=== PATIENT | male | born 1995 | race American Indian/Alaskan Native ===

== ENCOUNTER 2016-09-03 13:49 | Inpatient (IN) | payer OTHER ==
[2016-09-03] MEDS ORDERED: TYLENOL PO STA (14:50)
[2016-09-03] MEDS ORDERED: NACL 0.9% 500 ML 500 ML IV ONE (14:50)
[2016-09-03] MEDS ORDERED: LIDOCAINE VISCOUS 2% ONE (14:51)
[2016-09-03] MEDS ORDERED: TYLENOL ONE (14:51)
[2016-09-03] MEDS ORDERED: LIDOCAINE VISCOUS 2% PO ONE (15:07)
--- NOTE | 2016-09-03 15:26 | XRay Report ---
AP CHEST: HISTORY: Sepsis AP view of the chest demonstrates a normal mediastinal and cardiac contour with clear lungs and normal bony and soft tissue structures. IMPRESSION: Unremarkable AP chest.
[2016-09-03 16:27] LABS: Bilirubin,Urine NEG (Negative); Blood,Urine NEG (Negative); Ketones,Urine 80 mg/dL (Negative); Leukocyte Esterase,Urine NEG (Negative); Mucus,Urine 3+ /HPF; Nitrite,Urine NEG (Negative)
[2016-09-03 17:22] LABS: Basophils % (Auto) 0.6 % (0.0-1.8); Eosinophils % (Auto) 0.1 % (0.0-4.3); Hematocrit 45.5 % (35.5-45.6); Mean Corpuscular HGB Conc 33 % (32-34); Mean Corpuscular Hemoglobin 27 pg (28-32); Mean Corpuscular Volume 82 fl (84-94); Platelet Count 205 K/mm3 (140-440); Red Blood Count 5.54 M/mm3 (3.65-5.03); Red Cell Distribution Width 13.2 % (13.2-15.2); White Blood Count 14.8 K/mm3 (4.5-11.0)
[2016-09-03 17:29] LABS: Alanine Aminotransferase 26 units/L (7-56); Albumin 4.2 g/dL (3.9-5); Albumin/Globulin Ratio 1.1 %; Alkaline Phosphatase 101 units/L (35-129); Anion Gap 18 mmol/L; Bilirubin,Total 0.6 mg/dL (0.1-1.2); Blood Urea Nitrogen 9 mg/dL (9-20); Calcium 9.4 mg/dL (8.4-10.2); Carbon Dioxide 26 mmol/L (22-30); Chloride 93.1 mmol/L (98-107); Glucose 102 mg/dL (75-100); Potassium 3.8 mmol/L (3.6-5.0); Sodium 133 mmol/L (137-145); Total Protein 8.1 g/dL (6.3-8.2)
[2016-09-03 17:32] LABS: INR 1.07 (0.87-1.13)
[2016-09-03] MEDS ORDERED: NACL 0.9% 1000 ML 1,000 ML ONE (20:09)
[2016-09-03] MEDS ORDERED: NACL 0.9% 1000 ML 1,000 ML IV ONE ×2 (20:38→21:24)
[2016-09-03] MEDS ORDERED: MAGIC MOUTHWASH PO ONE (20:58)
[2016-09-03] MEDS ORDERED: DIFLUCAN PO ONE ×2 (20:58)
[2016-09-03] MEDS ORDERED: TORADOL IV ONE (21:35)
--- NOTE | 2016-09-03 22:00 | Emergency Department Report ---
ED ENT HPI - General Chief complaint: Sore Throat Stated complaint: SORE THROAT Time Seen by Provider: 09/03/16 20:46 Source: patient Mode of arrival: Ambulatory Limitations: No Limitations - History of Present Illness Initial comments: 20-year-old male witha past medical history presents with fever and sore throat for the past week. Pain with swallowing and decreased by mouth intake reported. Pain is rated moderate in intensity. Patient noted slight discoloration to throat and tongue. Similar symptoms with strep throat in the past. Patient state he has never been tested for HIV - Related Data Allergies Allergy/AdvReac Type Severity Reaction Status Date / Time No Known Allergies Allergy Unverified 09/03/16 14:35 ED Dental HPI - General Chief complaint: Sore Throat Stated complaint: SORE THROAT Time Seen by Provider: 09/03/16 20:46 Source: patient Mode of arrival: Ambulatory Limitations: No Limitations - Related Data Allergies Allergy/AdvReac Type Severity Reaction Status Date / Time No Known Allergies Allergy Unverified 09/03/16 14:35 ED Review of Systems ROS: Stated complaint: SORE THROAT Other details as noted in HPI Comment: All other systems reviewed and negative Other: Constitutional: As per HPI Eyes: No eye pain visual changes or discharge ENT: As per HPI Neck: Denies pain Respiratory: Denies cough wheezing shortness of breath Cardiovascular: Denies chest pain, palpitations, syncope GI: Denies abdominal pain, nausea, vomiting, diarrhea : Denies dysuria, Musculoskeletal: Denies back pain Skin: Denies rash, lesions, erythema Neurologic: Denies headache, numbness, weakness Psychiatric: Denies suicidal ideation, hallucinations ED Past Medical Hx - Past Medical History Previous Medical History?: No - Surgical History Past Surgical History?: No - Social History Smoking Status: Never Smoker ED Physical Exam - General Limitations: No Limitations - Other Other exam information: General: No limitations, patient is alert in no acute distress Head exam: Atraumatic, normocephalic Eyes exam: Normal appearance ENT: White plaque to the tongue and posterior pharynx suggestive of candidiasis/ yeast. Neck exam: Normal inspection, full range of motion, no meningismus nontender. No tender lymphadenopathy Respiratory exam: Clear to auscultation bilateral, no wheezes, rales, crackles Cardiovascular: Normal rate and rhythm, normal heart sounds Abdomen: Soft, nondistended, and nontender, with normal bowel sounds, no rebound, or guarding Extremity: Full range of motion normal inspection no deformity Back: Normal Inspection, full range of motion, no tenderness Neurologic: Alert, oriented x3, cranial nerves intact, no motor or sensory deficit Psychiatric: normal affect, normal mood Skin: Warm, dry, intact ED Course Vital Signs 09/03/16 09/03/16 09/03/16 14:35 16:49 22:51 Temperature 103 F H 99.6 F Pulse Rate 129 H 111 H 106 H Respiratory 16 16 14 Rate Blood Pressure 127/70 Blood Pressure 122/71 137/90 [Left] O2 Sat by Pulse 100 100 98 Oximetry - Reevaluation(s) Reevaluation #1: 09/03/16 22:54 Hr improving with IVF and fever reduction - Consultations Consultation #1: 09/03/16 21:40 Case was discussed with Dr. Cardona with GI. Even if patient does have rhea esophagitis treatment with Diflucan is unchanged. 09/03/16 22:53 ID responded to page. Dr Salamanca... recommends to admit pt since likely immunocompromised with signifficant fever and oral hitting the ice ED Medical Decision Making - Lab Data Result diagrams: 09/03/16 16:46 09/03/16 16:46 Lab Results 09/03/16 09/03/16 09/03/16 Range/Units 14:56 15:46 16:46 WBC 14.8 H (4.5-11.0) K/mm3 RBC 5.54 H (3.65-5.03) M/mm3 Hgb 15.0 (11.8-15.2) gm/dl Hct 45.5 (35.5-45.6) % MCV 82 L (84-94) fl MCH 27 L (28-32) pg MCHC 33 (32-34) % RDW 13.2 (13.2-15.2) % Plt Count 205 (140-440) K/mm3 Lymph % (Auto) 16.4 (13.4-35.0) % [place] % (Auto) 14.7 H (0.0-7.3) % Eos % (Auto) 0.1 (0.0-4.3) % Baso % (Auto) 0.6 (0.0-1.8) % Lymph # 2.4 (1.2-5.4) K/mm3 [place] # 2.2 H (0.0-0.8) K/mm3 Eos # 0.0 (0.0-0.4) K/mm3 Baso # 0.1 (0.0-0.1) K/mm3 Seg Neutrophils % 68.2 (40.0-70.0) % Seg Neutrophils # 10.1 H (1.8-7.7) K/mm3 PT (12.2-14.9) Sec. INR (0.87-1.13) VBG pH (7.320-7.420) Sodium (137-145) mmol/L Potassium (3.6-5.0) mmol/L Chloride (98-107) mmol/L Carbon Dioxide (22-30) mmol/L Anion Gap mmol/L BUN (9-20) mg/dL Creatinine (0.8-1.5) mg/dL Estimated GFR ml/min BUN/Creatinine Ratio % Glucose (75-100) mg/dL POC Glucose 109 H (70-105) Lactic Acid (0.7-2.0) mmol/L Calcium (8.4-10.2) mg/dL Total Bilirubin (0.1-1.2) mg/dL AST (5-40) units/L ALT (7-56) units/L Alkaline Phosphatase (35-129) units/L Total Protein (6.3-8.2) g/dL Albumin (3.9-5) g/dL Albumin/Globulin Ratio % Urine Color [place]ora[place] (Yellow) Urine Turbidity Clear (Clear) Urine pH 5.0 (5.0-7.0) Ur Specific [place] 1.029 (1.003-1.030) Urine Protein 30 mg/dl (Negative) mg/dL Urine Glucose (UA) Neg (Negative) mg/dL Urine Ketones 80 (Negative) mg/dL Urine Blood Neg (Negative) Urine Nitrite Neg (Negative) Urine Bilirubin Neg (Negative) Urine Urobilinogen 4.0 (<2.0) mg/dL Ur Leukocyte Esterase Neg (Negative) Urine WBC (Auto) 8.0 H (0.0-6.0) /HPF Urine RBC (Auto) 3.0 (0.0-6.0) /HPF Urine Mucus 3+ /HPF 09/03/16 09/03/16 09/03/16 Range/Units 16:46 16:46 16:46 WBC (4.5-11.0) K/mm3 RBC (3.65-5.03) M/mm3 Hgb (11.8-15.2) gm/dl Hct (35.5-45.6) % MCV (84-94) fl MCH (28-32) pg MCHC (32-34) % RDW (13.2-15.2) % Plt Count (140-440) K/mm3 Lymph % (Auto) (13.4-35.0) % [place] % (Auto) (0.0-7.3) % Eos % (Auto) (0.0-4.3) % Baso % (Auto) (0.0-1.8) % Lymph # (1.2-5.4) K/mm3 [place] # (0.0-0.8) K/mm3 Eos # (0.0-0.4) K/mm3 Baso # (0.0-0.1) K/mm3 Seg Neutrophils % (40.0-70.0) % Seg Neutrophils # (1.8-7.7) K/mm3 PT 13.8 (12.2-14.9) Sec. INR 1.07 (0.87-1.13) VBG pH (7.320-7.420) Sodium 133 L (137-145) mmol/L Potassium 3.8 (3.6-5.0) mmol/L Chloride 93.1 L (98-107) mmol/L Carbon Dioxide 26 (22-30) mmol/L Anion Gap 18 mmol/L BUN 9 (9-20) mg/dL Creatinine 1.0 (0.8-1.5) mg/dL Estimated GFR > 60 ml/min BUN/Creatinine Ratio 9.00 % Glucose 102 H (75-100) mg/dL POC Glucose (70-105) Lactic Acid 1.3 (0.7-2.0) mmol/L Calcium 9.4 (8.4-10.2) mg/dL Total Bilirubin 0.6 (0.1-1.2) mg/dL AST 23 (5-40) units/L ALT 26 (7-56) units/L Alkaline Phosphatase 101 (35-129) units/L Total Protein 8.1 (6.3-8.2) g/dL Albumin 4.2 (3.9-5) g/dL Albumin/Globulin Ratio 1.1 % Urine Color (Yellow) Urine Turbidity (Clear) Urine pH (5.0-7.0) Ur Specific [place] (1.003-1.030) Urine Protein (Negative) mg/dL Urine Glucose (UA) (Negative) mg/dL Urine Ketones (Negative) mg/dL Urine Blood (Negative) Urine Nitrite (Negative) Urine Bilirubin (Negative) Urine Urobilinogen (<2.0) mg/dL Ur Leukocyte Esterase (Negative) Urine WBC (Auto) (0.0-6.0) /HPF Urine RBC (Auto) (0.0-6.0) /HPF Urine Mucus /HPF 09/03/16 Range/Units 16:46 WBC (4.5-11.0) K/mm3 RBC (3.65-5.03) M/mm3 Hgb (11.8-15.2) gm/dl Hct (35.5-45.6) % MCV (84-94) fl MCH (28-32) pg MCHC (32-34) % RDW (13.2-15.2) % Plt Count (140-440) K/mm3 Lymph % (Auto) (13.4-35.0) % [place] % (Auto) (0.0-7.3) % Eos % (Auto) (0.0-4.3) % Baso % (Auto) (0.0-1.8) % Lymph # (1.2-5.4) K/mm3 [place] # (0.0-0.8) K/mm3 Eos # (0.0-0.4) K/mm3 Baso # (0.0-0.1) K/mm3 Seg Neutrophils % (40.0-70.0) % Seg Neutrophils # (1.8-7.7) K/mm3 PT (12.2-14.9) Sec. INR (0.87-1.13) VBG pH 7.375 (7.320-7.420) Sodium (137-145) mmol/L Potassium (3.6-5.0) mmol/L Chloride (98-107) mmol/L Carbon Dioxide (22-30) mmol/L Anion Gap mmol/L BUN (9-20) mg/dL Creatinine (0.8-1.5) mg/dL Estimated GFR ml/min BUN/Creatinine Ratio % Glucose (75-100) mg/dL POC Glucose (70-105) Lactic Acid (0.7-2.0) mmol/L Calcium (8.4-10.2) mg/dL Total Bilirubin (0.1-1.2) mg/dL AST (5-40) units/L ALT (7-56) units/L Alkaline Phosphatase (35-129) units/L Total Protein (6.3-8.2) g/dL Albumin (3.9-5) g/dL Albumin/Globulin Ratio % Urine Color (Yellow) Urine Turbidity (Clear) Urine pH (5.0-7.0) Ur Specific [place] (1.003-1.030) Urine Protein (Negative) mg/dL Urine Glucose (UA) (Negative) mg/dL Urine Ketones (Negative) mg/dL Urine Blood (Negative) Urine Nitrite (Negative) Urine Bilirubin (Negative) Urine Urobilinogen (<2.0) mg/dL Ur Leukocyte Esterase (Negative) Urine WBC (Auto) (0.0-6.0) /HPF Urine RBC (Auto) (0.0-6.0) /HPF Urine Mucus /HPF - Medical Decision Making Patient will be admitted to the hospital due to fever with significant oral candidiasis. Case was discussed with infectious disease. - Differential Diagnosis strep throat, pharyngitis, thrush, East pharyngitis, esophageal candidiasis Critical Care Time: No Critical care attestation.: If time is entered above; I have spent that time in minutes in the direct care of this critically ill patient, excluding procedure time. ED Disposition Clinical Impression: Oral pharyngeal candidiasis, Fever, Dehydration Disposition: OP ADMITTED IP TO THIS HOSP Is pt being admited?: Yes Condition: Stable Time of Disposition: 22:56 (Dr Mccann/hosp)
[2016-09-03] MEDS ORDERED: MORPHINE IV PRN (23:31)
[2016-09-03] MEDS ORDERED: ZOFRAN IV PRN (23:31)
[2016-09-03] MEDS ORDERED: MILK OF MAGNESIA PO PRN (23:31)
[2016-09-03] MEDS ORDERED: LIDOCAINE VISCOUS 2% MM PRN (23:31)
[2016-09-03] MEDS ORDERED: DULCOLAX PR PRN (23:31)
--- NOTE | 2016-09-03 23:46 | History and Physical Report ---
History of Present Illness Date of examination: 09/03/16 History of present illness: 20-year-old man with no medical problems comes emergency room with complaints of difficulty swallowing, sore throat started this week. Also complaining of fever, headache, difficulty swallowing. He stated he feels like when he had strep throat here denies weight loss, sexually active with one partner, he stated he was tested for HIV a year ago which was negative Patient denies chest pain, palpitation, shortness of breath, cough, abdominal pain, hematochezia, dysuria, frequency, focal weakness, dysarthria, chills, polydipsia polyuria, hot or cold intolerance, easy bruisability, or rash or bleeding from mucosal membrane, rhinorrhea, epistaxis, earache, tinnitus, blurry vision, eye discharge, anxiety, depression. Other review of systems negative PAST SURGICAL HISTORY: None SOCIAL HISTORY: Denies alcohol, tobacco, drugs FAMILY HISTORY: Hypertension Medications and Allergies Allergies Allergy/AdvReac Type Severity Reaction Status Date / Time No Known Allergies Allergy Unverified 09/03/16 14:35 Home Medications Medication Instructions Recorded Confirmed Last Taken Type Fluconazole [Diflucan TAB] 100 mg PO QDAY #7 tablet 09/09/16 Unknown Rx Levofloxacin [Levaquin TAB] 750 mg PO Q24HR #7 tablet 09/09/16 Unknown Rx Exam - Physical Exam Narrative exam: Gen. appearance: Patient lying in bed, no apparent distress HEENT: Normocephalic, atraumatic, pupils equally round and reactive to light, extraocular movement intact, and no sclericterus,. No JVD or thyromegaly or nodule,neck supple, no carotid bruit ,mucous membranes moist, with plaques on tongue, unable to see back of throat Heart: S1, S2, regular rate and rhythm Lungs: Clear to auscultation bilaterally, breathing comfortable Abdomen: Positive bowel sounds, nontender, nondistended, no organomegaly Extremity: No edema, cyanosis, clubbing Skin: No rash, nodules, warm, dry Neuro: Oriented 3, cranial nerves II-12 intact, speech is fluent, motor and sensory intact - Constitutional Vitals: Temp Pulse Resp BP Pulse Ox 99.6 F 106 H 14 137/90 98 09/03/16 16:49 09/03/16 22:51 09/03/16 22:51 09/03/16 22:51 09/03/16 22:51 Results - Labs CBC & Chem 7: 09/09/16 06:05 09/09/16 06:05 Labs: Abnormal lab results 09/03/16 09/03/16 09/03/16 Range/Units 14:56 15:46 16:46 WBC 14.8 H (4.5-11.0) K/mm3 RBC 5.54 H (3.65-5.03) M/mm3 MCV 82 L (84-94) fl MCH 27 L (28-32) pg [place] % (Auto) 14.7 H (0.0-7.3) % [place] # 2.2 H (0.0-0.8) K/mm3 Seg Neutrophils # 10.1 H (1.8-7.7) K/mm3 Sodium (137-145) mmol/L Chloride (98-107) mmol/L Glucose (75-100) mg/dL POC Glucose 109 H (70-105) Urine WBC (Auto) 8.0 H (0.0-6.0) /HPF 09/03/16 Range/Units 16:46 WBC (4.5-11.0) K/mm3 RBC (3.65-5.03) M/mm3 MCV (84-94) fl MCH (28-32) pg [place] % (Auto) (0.0-7.3) % [place] # (0.0-0.8) K/mm3 Seg Neutrophils # (1.8-7.7) K/mm3 Sodium 133 L (137-145) mmol/L Chloride 93.1 L (98-107) mmol/L Glucose 102 H (75-100) mg/dL POC Glucose (70-105) Urine WBC (Auto) (0.0-6.0) /HPF - Imaging and Cardiology EKG: image reviewed Chest x-ray: report reviewed Assessment and Plan Oral candidiasis, rule out HIV Dehydration Admit to medicine Start fluconazole, viscous lidocaine, DVT prophylaxis check HIV
[2016-09-04] MEDS: NACL 0.9% 1000 ML 1,000 ML IV SCH ×2 (02:49→12:26)
[2016-09-04 02:55] LABS: HIV-1 Antigen p24 Non React (Non React); HIVR-1/2 Ab Non React (Non React)
--- NOTE | 2016-09-04 08:07 | Progress Note ---
Assessment and Plan Assessment and plan: --Febrile illness Blood and urine cultures, empiric IV antibiotics, IV fluids supportive care Follow cultures --oral candidiasis HIV test negative, Diflucan, and Nystatin swish and swallow Supportive care --Leukocytosis, secondary to sepsis Continue IV antibiotics and follow cultures --Mild hypo natremia, replacement therapy with normal saline Closely monitor electrolytes --ID evaluation for assistance with management GI evaluation if needed for possible endoscopy and to rule out Cindy esophagitis --DVT prophylaxis with Lovenox Will closely monitor the patient and adjust the management as needed Since condition treatment plan discussed in detail with the patient as well as his nurse History Interval history: Patient seen and evaluated in his room medical records reviewed Complaints of sore throat difficulty swallowing Admitted with oral candidiasis on Diflucan Alert awake oriented 3 not in acute distress, vital signs reviewed Hospitalist Physical - Constitutional Vitals: Temp Pulse Resp BP Pulse Ox 102.5 F H 115 H 16 117/59 99 09/04/16 07:45 09/04/16 07:45 09/04/16 07:45 09/04/16 07:45 09/04/16 07:45 General appearance: Present: no acute distress, well-nourished, obese, other ( febrile) - EENT Eyes: Present: PERRL, EOM intact ENT: other (white patchy plaques on the tongue) - Neck Neck: Present: supple, normal ROM - Respiratory Respiratory effort: normal Respiratory: bilateral: diminished, negative: rales, rhonchi, wheezing - Cardiovascular Rhythm: regular Heart Sounds: Present: S1 & S2 (tachycardia) - Extremities Extremities: no ischemia, pulses intact, No edema Peripheral Pulses: within normal limits - Abdominal General gastrointestinal: soft, non-tender, non-distended, normal bowel sounds - Integumentary Integumentary: Present: clear, warm - Psychiatric Psychiatric: appropriate mood/affect, cooperative - Neurologic Neurologic: CNII-XII intact, moves all extremities Results - Labs CBC & Chem 7: 09/06/16 05:34 09/06/16 05:34 Labs: Laboratory Last Values WBC 14.8 K/mm3 (4.5-11.0) H 09/03/16 16:46 RBC 5.54 M/mm3 (3.65-5.03) H 09/03/16 16:46 Hgb 15.0 gm/dl (11.8-15.2) 09/03/16 16:46 Hct 45.5 % (35.5-45.6) 09/03/16 16:46 MCV 82 fl (84-94) L 09/03/16 16:46 MCH 27 pg (28-32) L 09/03/16 16:46 MCHC 33 % (32-34) 09/03/16 16:46 RDW 13.2 % (13.2-15.2) 09/03/16 16:46 Plt Count 205 K/mm3 (140-440) 09/03/16 16:46 Lymph % (Auto) 16.4 % (13.4-35.0) 09/03/16 16:46 [place] % (Auto) 14.7 % (0.0-7.3) H 09/03/16 16:46 Eos % (Auto) 0.1 % (0.0-4.3) 09/03/16 16:46 Baso % (Auto) 0.6 % (0.0-1.8) 09/03/16 16:46 Lymph # 2.4 K/mm3 (1.2-5.4) 09/03/16 16:46 [place] # 2.2 K/mm3 (0.0-0.8) H 09/03/16 16:46 Eos # 0.0 K/mm3 (0.0-0.4) 09/03/16 16:46 Baso # 0.1 K/mm3 (0.0-0.1) 09/03/16 16:46 Seg Neutrophils % 68.2 % (40.0-70.0) 09/03/16 16:46 Seg Neutrophils # 10.1 K/mm3 (1.8-7.7) H 09/03/16 16:46 PT 13.8 Sec. (12.2-14.9) 09/03/16 16:46 INR 1.07 (0.87-1.13) 09/03/16 16:46 VBG pH 7.375 (7.320-7.420) 09/03/16 16:46 Sodium 133 mmol/L (137-145) L 09/03/16 16:46 Potassium 3.8 mmol/L (3.6-5.0) 09/03/16 16:46 Chloride 93.1 mmol/L (98-107) L 09/03/16 16:46 Carbon Dioxide 26 mmol/L (22-30) 09/03/16 16:46 Anion Gap 18 mmol/L 09/03/16 16:46 BUN 9 mg/dL (9-20) 09/03/16 16:46 Creatinine 1.0 mg/dL (0.8-1.5) 09/03/16 16:46 Estimated GFR > 60 ml/min 09/03/16 16:46 BUN/Creatinine Ratio 9.00 % 09/03/16 16:46 Glucose 102 mg/dL (75-100) H 09/03/16 16:46 POC Glucose 109 (70-105) H 09/03/16 14:56 Lactic Acid 1.3 mmol/L (0.7-2.0) 09/03/16 16:46 Calcium 9.4 mg/dL (8.4-10.2) 09/03/16 16:46 Total Bilirubin 0.6 mg/dL (0.1-1.2) 09/03/16 16:46 AST 23 units/L (5-40) 09/03/16 16:46 ALT 26 units/L (7-56) 09/03/16 16:46 Alkaline Phosphatase 101 units/L (35-129) 09/03/16 16:46 Total Protein 8.1 g/dL (6.3-8.2) 09/03/16 16:46 Albumin 4.2 g/dL (3.9-5) 09/03/16 16:46 Albumin/Globulin Ratio 1.1 % 09/03/16 16:46 Urine Color [place]oraida (Yellow) 09/03/16 15:46 Urine Turbidity Clear (Clear) 09/03/16 15:46 Urine pH 5.0 (5.0-7.0) 09/03/16 15:46 Ur Specific [place] 1.029 (1.003-1.030) 09/03/16 15:46 Urine Protein 30 mg/dl mg/dL (Negative) 09/03/16 15:46 Urine Glucose (UA) Neg mg/dL (Negative) 09/03/16 15:46 Urine Ketones 80 mg/dL (Negative) 09/03/16 15:46 Urine Blood Neg (Negative) 09/03/16 15:46 Urine Nitrite Neg (Negative) 09/03/16 15:46 Urine Bilirubin Neg (Negative) 09/03/16 15:46 Urine Urobilinogen 4.0 mg/dL (<2.0) 09/03/16 15:46 Ur Leukocyte Esterase Neg (Negative) 09/03/16 15:46 Urine WBC (Auto) 8.0 /HPF (0.0-6.0) H 09/03/16 15:46 Urine RBC (Auto) 3.0 /HPF (0.0-6.0) 09/03/16 15:46 Urine Mucus 3+ /HPF 09/03/16 15:46 HIV 1&2 Antibody Rapid Non react (Non React) 09/04/16 02:02 HIV P24 Antigen Non react (Non React) 09/04/16 02:02
[2016-09-04] MEDS: TYLENOL PO PRN ×3 (08:53→22:57)
[2016-09-04] MEDS: DIFLUCAN/NS 100 MG/50 ML 100 MG/50 ML BAG IV SCH (09:32)
[2016-09-04] MEDS: LOVENOX SUB-Q SCH (09:32)
[2016-09-04] MEDS ORDERED: ZOSYN/NS 4.5GM/100ML 4.5 GM/100 ML VIAL IV SCH (14:00)
--- NOTE | 2016-09-04 15:33 | Admit Criteria Form ---
Admission Criteria Documentation: FEVER Clinical Indications for Inpatient Care (Place 'X' for any and all applicable criteria): Ongoing inpatient care may be indicated for fever with ANY ONE of the following[ D] (5)(27)(28)(29)(30)(31): [ ]I. Bacteremia [X]II. Evidence of significant systemic illness as indicated by ANY ONE of the following: [X]a) Persistently high temperatures greater than 103.1 degrees F ( 39.5 degrees C) (oral) [ ]b) New-onset hypoxia [ ]c) Hemodynamic instability [ ]d) Mental status changes [ ]e) Decreased urine output due to developing renal insufficiency [ ]f) New focal neurologic deficit (eg, stroke) [ ]g) Seizures [ ]h) Rigors [ ]i) Dehydration or hypovolemia [ ]j) Inadequate oral intake [ ]III. Patient in the immediate postoperative period with ANY ONE of the following (E)(23)(24): [ ]a) Evidence of specific localizing infection requiring ongoing inpatient evaluation or treatment (eg,abscess, severe pneumonia, wound infection ) [ ]b) Known or suspected cause of fever requiring ongoing inpatient evaluation or treatment (eg, DVT) [ ]c) Evidence of malignant hyperthermia (eg, unexplained tachycardia and muscle rigidity after depolarizing muscular blocking agent or inhaled anesthetic agent) [ ]IV. Suspected cause requiring acute care (eg, endocarditis, meningitis) [ ]V. High suspicion of bacteremia as indicated by severe constitutional symptoms in patient at high risk as indicated by ANY ONE of the following: [ ]a) Immunocompromised state [D](22) [ ]b) Age <3 years or >65 years [ ]c) Severe comorbidities (eg, poorly controlled diabetes, severe COPD) [X]. High suspicion for fungal infection as indicated by ANY ONE of the following (22)(25): [ ]a) Febrile neutropenia (WBC <500/mm3 (0.5 X 109/L)) for >4 days despite broad spectrum antibiotics [X]b) Imaging findings suggestive of fungal infection [ ]c) Immunocompromised state [ ]d) Immunocompromised patient colonized with Aspergillus species [ ]VII. Evidence of infection of medical devices such as implanted catheters or exposed hardware [ ]VIII. Suspected neuroleptic malignant syndrome as evidenced by ALL of the following (15): [ ]a) Recent use of neuroleptic medication (eg, haloperidol, prochlorperazine, metoclopramide) [ ]b) New-onset muscle rigidity Extended stay beyond goal length of stay for primary condition may be needed until ALL of the following are present(16)(17)(18)(19)(20)(21): [ ]a) Temperature status acceptable as indicated by ANY ONE of the following: [ ]i) Temp <38.1C (100.5 F) (oral) [ ]ii) Temp as expected for disease process and care performable at next level of care [ ]b) Hemodynamic stability [ ]c) Cultures negative or infection identified and under adequate treatment [ ]d) Behavior or mental status abnormalities absent or manageable at lower level of care (Also use Mental Status Change Criteria Form) for further information. [ ]e) Medical comorbidities absent or manageable at a lower level of care The original [facility] content created by [facility] has been revised. The portions of the content which have been revised are identified through the use of italic text or in bold, and [facility] has neither reviewed nor approved the modified material. All other unmodified content is copyright [facility]. Please see references footnoted in the original [facility] edition 2016 Admission Criteria Met: Yes
--- NOTE | 2016-09-04 20:17 | Consultation ---
History of Present Illness - Reason for Consult Consult date: 09/04/16 fever, oral candidiasis Requesting physician: LESIA ARREDONDO - History of Present Illness 20-year-old man with no medical problems comes emergency room with complaints of difficulty swallowing, sore throat started this week. Also complaining of fever, headache, difficulty swallowing. He stated he feels like when he had strep throat here denies weight loss, sexually active with one partner, he stated he was tested for HIV a year ago which was negative Patient denies chest pain, palpitation, shortness of breath, cough, abdominal pain, hematochezia, dysuria, frequency, focal weakness, dysarthria, chills, polydipsia polyuria, hot or cold intolerance, easy bruisability, or rash or bleeding from mucosal membrane, rhinorrhea, epistaxis, earache, tinnitus, blurry vision, eye discharge, anxiety, depression. Patient also denied weight loss. ASSESSMENT 1. Fever ? etiology. HIV is negative. No weight loss or history of abnormal bleeding. No cough. No abdominal symptoms. No diarrhea. 2. Oroesophageal candidiasis RECOMMENDATION 1.d/c zosyn and start oral levaquin and bactrim. 2.ct chest and abdomen 3.repeat blood culture x2 4.sed rate 5. will reevaluate in am Medications and Allergies Allergies Allergy/AdvReac Type Severity Reaction Status Date / Time No Known Allergies Allergy Unverified 09/03/16 14:35 Home Medications Medication Instructions Recorded Confirmed Last Taken Type No Known Home Medications [No 09/03/16 09/03/16 Unknown History Reported Home Medications] Active Meds: Active Medications Acetaminophen (Tylenol) 650 mg PO Q4H PRN PRN Reason: Pain MILD(1-3)/Fever >100.5/PEREZ Last Admin: 09/04/16 15:30 Dose: 650 mg Bisacodyl (Dulcolax) 10 mg VT QDAY PRN PRN Reason: Constipation unrelieved by MOM Enoxaparin Sodium (Lovenox) 40 mg SUB-Q QDAY MARQUITA Last Admin: 09/04/16 09:32 Dose: 40 mg Sodium Chloride (Nacl 0.9% 1000 Ml) 1,000 mls @ 100 mls/hr IV DIRECT MARQUITA Last Admin: 09/04/16 12:26 Dose: 100 mls/hr Fluconazole (Diflucan/Ns 100 Mg/50 Ml) 100 mg in 50 mls @ 50 mls/hr IV Q24HR [facility] Last Admin: 09/04/16 09:32 Dose: 50 mls/hr Levofloxacin (Levaquin) 750 mg PO Q24HR [facility] Lidocaine HCl (Lidocaine Viscous 2%) 15 ml MM Q6H PRN PRN Reason: Pain Magnesium Hydroxide (Milk Of Magnesia) 30 ml PO Q4H PRN PRN Reason: Constipation Morphine Sulfate (Morphine) 2 mg IV Q4H PRN PRN Reason: Pain, Moderate (4-6) Ondansetron HCl (Zofran) 4 mg IV Q8H PRN PRN Reason: N/V unrelieved by Reglan Trimethoprim/Sulfamethoxazole (Bactrim Ds) 1 each PO Q12HR [facility] Physical Examination - Constitutional Vitals: Vital Signs Temp Pulse Resp BP Pulse Ox 99.9 F H 115 H 12 127/70 99 09/04/16 18:14 09/04/16 15:08 09/04/16 15:08 09/04/16 15:08 09/04/16 15:08 Temperature -Last 24 Hours Temperature 99.9 F Temperature 103.1 F Temperature 102.5 F Temperature 99.7 F Results - Labs CBC & Chem 7: 09/03/16 16:46 09/03/16 16:46
[2016-09-04] MEDS: BACTRIM DS PO SCH (22:57)
[2016-09-05] MEDS: NACL 0.9% 1000 ML 1,000 ML IV SCH ×2 (01:31→17:45)
--- NOTE | 2016-09-05 03:01 | Cat Scan Report ---
FINAL REPORT PROCEDURE: CT CHEST WO CON TECHNIQUE: Computerized axial tomography of the chest was performed without contrast material. This study is performed without intravenous contrast and the sensitivity for pathology, including neoplasms, adenopathy, abscess, pulmonary embolism and aortic dissection, is reduced. HISTORY: fever COMPARISON: No prior studies are available for comparison. TECHNICAL QUALITY: Satisfactory. FINDINGS: Heart and pericardium: Normal. Thoracic aorta: Normal. Pulmonary vasculature: Normal. Lymph nodes: No enlarged thoracic lymph nodes. Lungs: Lungs are well-expanded. There is a small right pleural effusion. There is no pneumothorax. There are no infiltrates.. Pleural space: No effusion, thickening, or pneumothorax. Musculoskeletal structures: No significant abnormality. Upper abdominal structures: No significant abnormality. IMPRESSION: Lungs are well-expanded. There is a small right pleural effusion. There is no pneumothorax. There are no infiltrates. There is no mediastinal or hilar lymphadenopathy..
--- NOTE | 2016-09-05 03:10 | Cat Scan Report ---
FINAL REPORT PROCEDURE: CT ABDOMEN PELVIS WO CON TECHNIQUE: Computerized axial tomography of the abdomen and pelvis was performed without intravenous contrast. This study is performed without intravascular contrast material and its sensitivity for abdominal and pelvic pathology, including neoplasms, inflammation, abscess, free fluid, thrombosis, arterial dissection and infarction, is reduced compared with a contrast enhanced study. HISTORY: fever COMPARISON: No prior studies are available for comparison. FINDINGS: Liver: Normal size and attenuation. Spleen: Normal size and attenuation. Gallbladder and biliary system: Normal. Pancreas: Normal. Adrenals: Normal. Kidneys: There are no kidney stones. There is no hydronephrosis.. GI tract: There is no bowel obstruction, colitis or enteritis. The appendix is normal.. Lymph nodes and mesentery: Normal. Vasculature: Normal. Bladder: Normal. Reproductive organs: Normal. Peritoneum: There is no ascites, free air, abscess or adenopathy.. Musculoskeletal structures: No significant abnormality. Other: None. IMPRESSION: There are no kidney stones. There is no hydronephrosis.. There is no bowel obstruction, colitis or enteritis. The appendix is normal.. There is no ascites, free air, abscess or adenopathy..
[2016-09-05 06:45] LABS: Hematocrit 41.7 % (35.5-45.6); Hemoglobin 13.9 gm/dl (11.8-15.2); Mean Corpuscular HGB Conc 33 % (32-34); Mean Corpuscular Hemoglobin 27 pg (28-32); Mean Corpuscular Volume 81 fl (84-94); Platelet Count 195 K/mm3 (140-440); Red Blood Count 5.13 M/mm3 (3.65-5.03); Red Cell Distribution Width 12.9 % (13.2-15.2); White Blood Count 11.9 K/mm3 (4.5-11.0)
[2016-09-05 06:50] LABS: Anion Gap 18 mmol/L; Blood Urea Nitrogen 4 mg/dL (9-20); Calcium 8.5 mg/dL (8.4-10.2); Carbon Dioxide 24 mmol/L (22-30); Chloride 98.8 mmol/L (98-107); Glucose 106 mg/dL (75-100); Potassium 3.6 mmol/L (3.6-5.0); Sodium 137 mmol/L (137-145)
--- NOTE | 2016-09-05 08:54 | Progress Note ---
Assessment and Plan Assessment and plan: 1. Sepsis. Present on admission. Check sed rate Follow-up Blood and urine cultures. Continue empiric IV antibiotics, IV fluids and supportive care 2. oral candidiasis HIV test negative, Diflucan, and Nystatin swish and swallow Supportive care. GI evaluation if needed for possible endoscopy and to rule out Cindy esophagitis 3. Leukocytosis, secondary to sepsis Continue IV antibiotics and follow cultures. Follow-up CT chest and abdomen. ID following 4. Mild hyponatremia, replacement therapy with normal saline Closely monitor electrolytes 5. DVT prophylaxis with Lovenox History Interval history: 10-year-old man with no medical problems comes emergency room with complaints of difficulty swallowing, sore throat started this week. Also complaining of fever , headache, difficulty swallowing. He stated he feels like when he had strep throat here denies weight loss, sexually active with one partner, he stated he was tested for HIV a year ago which was negative Hospitalist Physical - Constitutional Vitals: Temp Pulse Resp BP Pulse Ox 103.0 F H 115 H 20 156/89 99 09/04/16 23:48 09/04/16 23:48 09/04/16 23:48 09/04/16 23:48 09/04/16 23:48 General appearance: Present: no acute distress, well-nourished, obese, other ( febrile) - EENT Eyes: Present: PERRL, EOM intact ENT: hearing intact, clear oral mucosa, dentition normal, thrush - Neck Neck: Present: supple, normal ROM - Respiratory Respiratory effort: normal Respiratory: bilateral: diminished - Cardiovascular Rhythm: regular Heart Sounds: Present: S1 & S2. Absent: gallop, rub - Extremities Extremities: no ischemia, No edema, Full ROM - Abdominal General gastrointestinal: soft, non-tender, non-distended, normal bowel sounds - Integumentary Integumentary: Present: clear, warm, dry - Neurologic Neurologic: CNII-XII intact, moves all extremities Results - Labs CBC & Chem 7: 09/05/16 06:17 09/05/16 06:17 Labs: Laboratory Last Values WBC 11.9 K/mm3 (4.5-11.0) H 09/05/16 06:17 RBC 5.13 M/mm3 (3.65-5.03) H 09/05/16 06:17 Hgb 13.9 gm/dl (11.8-15.2) 09/05/16 06:17 Hct 41.7 % (35.5-45.6) 09/05/16 06:17 MCV 81 fl (84-94) L 09/05/16 06:17 MCH 27 pg (28-32) L 09/05/16 06:17 MCHC 33 % (32-34) 09/05/16 06:17 RDW 12.9 % (13.2-15.2) L 09/05/16 06:17 Plt Count 195 K/mm3 (140-440) 09/05/16 06:17 Lymph % (Auto) 16.4 % (13.4-35.0) 09/03/16 16:46 [place] % (Auto) District Supervisor 09/05/16 06:17 Eos % (Auto) 0.1 % (0.0-4.3) 09/03/16 16:46 Baso % (Auto) 0.6 % (0.0-1.8) 09/03/16 16:46 Lymph # 2.4 K/mm3 (1.2-5.4) 09/03/16 16:46 [place] # 2.2 K/mm3 (0.0-0.8) H 09/03/16 16:46 Eos # 0.0 K/mm3 (0.0-0.4) 09/03/16 16:46 Baso # 0.1 K/mm3 (0.0-0.1) 09/03/16 16:46 Seg Neutrophils % 68.2 % (40.0-70.0) 09/03/16 16:46 Seg Neutrophils # 10.1 K/mm3 (1.8-7.7) H 09/03/16 16:46 ESR 28 mm/Hr (0-20) 09/04/16 21:51 PT 13.8 Sec. (12.2-14.9) 09/03/16 16:46 INR 1.07 (0.87-1.13) 09/03/16 16:46 VBG pH 7.375 (7.320-7.420) 09/03/16 16:46 Sodium 137 mmol/L (137-145) 09/05/16 06:17 Potassium 3.6 mmol/L (3.6-5.0) 04/01/17 06:17 Chloride 98.8 mmol/L (98-107) 09/05/16 06:17 Carbon Dioxide 24 mmol/L (22-30) 09/05/16 06:17 Anion Gap 18 mmol/L 09/05/16 06:17 BUN 4 mg/dL (9-20) L 09/05/16 06:17 Creatinine 1.0 mg/dL (0.8-1.5) 09/05/16 06:17 Estimated GFR > 60 ml/min 09/05/16 06:17 BUN/Creatinine Ratio 4.00 % 09/05/16 06:17 Glucose 106 mg/dL (75-100) H 09/05/16 06:17 POC Glucose 109 (70-105) H 09/03/16 14:56 Lactic Acid 1.3 mmol/L (0.7-2.0) 09/03/16 16:46 Calcium 8.5 mg/dL (8.4-10.2) 09/05/16 06:17 Total Bilirubin 0.6 mg/dL (0.1-1.2) 09/03/16 16:46 AST 23 units/L (5-40) 09/03/16 16:46 ALT 26 units/L (7-56) 09/03/16 16:46 Alkaline Phosphatase 101 units/L (35-129) 09/03/16 16:46 Total Protein 8.1 g/dL (6.3-8.2) 09/03/16 16:46 Albumin 4.2 g/dL (3.9-5) 09/03/16 16:46 Albumin/Globulin Ratio 1.1 % 09/03/16 16:46 Urine Color [place]ora[place] (Yellow) 09/03/16 15:46 Urine Turbidity Clear (Clear) 09/03/16 15:46 Urine pH 5.0 (5.0-7.0) 09/03/16 15:46 Ur Specific [place] 1.029 (1.003-1.030) 09/03/16 15:46 Urine Protein 30 mg/dl mg/dL (Negative) 09/03/16 15:46 Urine Glucose (UA) Neg mg/dL (Negative) 09/03/16 15:46 Urine Ketones 80 mg/dL (Negative) 09/03/16 15:46 Urine Blood Neg (Negative) 09/03/16 15:46 Urine Nitrite Neg (Negative) 09/03/16 15:46 Urine Bilirubin Neg (Negative) 09/03/16 15:46 Urine Urobilinogen 4.0 mg/dL (<2.0) 09/03/16 15:46 Ur Leukocyte Esterase Neg (Negative) 09/03/16 15:46 Urine WBC (Auto) 8.0 /HPF (0.0-6.0) H 09/03/16 15:46 Urine RBC (Auto) 3.0 /HPF (0.0-6.0) 09/03/16 15:46 Urine Mucus 3+ /HPF 09/03/16 15:46 HIV 1&2 Antibody Rapid Non react (Non React) 09/04/16 02:02 HIV P24 Antigen Non react (Non React) 09/04/16 02:02
[2016-09-05] MEDS: LOVENOX SUB-Q SCH (10:15)
[2016-09-05] MEDS: TYLENOL PO PRN ×3 (10:15→21:05)
[2016-09-05] MEDS: BACTRIM DS PO SCH ×2 (10:15→21:05)
[2016-09-05] MEDS: LEVAQUIN PO SCH (10:16)
[2016-09-05] MEDS: DIFLUCAN/NS 100 MG/50 ML 100 MG/50 ML BAG IV SCH (10:16)
[2016-09-05 12:08] LABS: Basophils % (Manual) 0 % (0.0-1.8); Blastocytes % (Manual) 0 %; Eosinophils % (Manual) 0 % (0.0-4.3)
[2016-09-05 12:09] LABS: Anisocytosis 1+; Diff Status Complete; Platelet Estimate Consistent w Auto
--- NOTE | 2016-09-05 20:21 | Progress Note ---
Subjective Date of service: 09/05/16 Principal diagnosis: fever, oral thrush Interval history: No complaints. VS - tmax 103.2. Tachycardia with pulse rate of 127. chest good air . abd - full. No tenderness. bs+. no axillary or inguinal lymph nodes palpated. LABS HIV - neg. ct chest and abdomen - unremarkable. ASSESSMENT 1. Fever ? etiology. 2. Oroesophageal candidiasis RECOMMENDATION 1. continue oral antibiotics 2. TSH, t4 3. Echocardiogram. Objective - Constitutional Vitals: Vital Signs Temp Pulse Resp BP Pulse Ox 101.5 F H 110 H 20 130/70 100 09/05/16 17:00 09/05/16 17:00 09/05/16 17:00 09/05/16 17:00 09/05/16 17:00 Temperature -Last 24 Hours Temperature 101.5 F Temperature 103.1 F Temperature 103.0 F - Labs CBC & Chem 7: 09/05/16 06:17 09/05/16 06:17 Labs: Abnormal lab results 09/05/16 09/05/16 Range/Units 06:17 06:17 WBC 11.9 H (4.5-11.0) K/mm3 RBC 5.13 H (3.65-5.03) M/mm3 MCV 81 L (84-94) fl MCH 27 L (28-32) pg RDW 12.9 L (13.2-15.2) % Monocytes % (Manual) 13.0 H (0.0-7.3) % Seg Neutrophils # Man 7.9 H (1.8-7.7) K/mm3 Monocytes # (Manual) 1.5 H (0.0-0.8) K/mm3 BUN 4 L (9-20) mg/dL Glucose 106 H (75-100) mg/dL
[2016-09-06 06:10] LABS: Hematocrit 42.6 % (35.5-45.6); Mean Corpuscular HGB Conc 33 % (32-34); Mean Corpuscular Hemoglobin 27 pg (28-32); Mean Corpuscular Volume 81 fl (84-94); Platelet Count 208 K/mm3 (140-440); Red Blood Count 5.24 M/mm3 (3.65-5.03); Red Cell Distribution Width 13.4 % (13.2-15.2); White Blood Count 14.1 K/mm3 (4.5-11.0)
[2016-09-06] MEDS: NACL 0.9% 1000 ML 1,000 ML IV SCH ×2 (06:13→16:50)
[2016-09-06 06:23] LABS: Anion Gap 20 mmol/L; BUN/Creatinine Ratio 5.55; Blood Urea Nitrogen 5 mg/dL (9-20); Calcium 8.6 mg/dL (8.4-10.2); Carbon Dioxide 22 mmol/L (22-30); Chloride 100.1 mmol/L (98-107); Glucose 91 mg/dL (75-100); Sodium 138 mmol/L (137-145)
--- NOTE | 2016-09-06 09:19 | Progress Note ---
Assessment and Plan Assessment and plan: 1. Sepsis. Present on admission. No obvious source of infectionother than candidiasis. Patient only with slightly elevated sedimentation rate at 28. Lactic acid levels are normal. Blood cultures are negative. However, patient with persistent fevers. Check echocardiogram. Consider lower extremity Dopplers. ID following. Follow-up Blood and urine cultures. Continue empiric IV antibiotics, IV fluids and supportive care 2. oral candidiasis HIV test negative, Diflucan, and Nystatin swish and swallow Supportive care. GI evaluation if needed for possible endoscopy and to rule out Cindy esophagitis 3. Leukocytosis, secondary to sepsis. Slightly worse today. CT of the chest, abdomen and pelvis essentially negative except for small right pleural effusion. ID following 4. Mild hyponatremia, replacement therapy with normal saline Closely monitor electrolytes 5. DVT prophylaxis with Lovenox History Interval history: 10-year-old man with no medical problems comes emergency room with complaints of difficulty swallowing, sore throat started this week. Also complaining of fever , headache, difficulty swallowing. He stated he feels like when he had strep throat here denies weight loss, sexually active with one partner, he stated he was tested for HIV a year ago which was negative Hospitalist Physical - Constitutional Vitals: Temp Pulse Resp BP Pulse Ox 99.8 F H 108 H 18 125/76 98 09/06/16 08:03 09/06/16 08:03 09/06/16 08:03 09/06/16 08:03 09/06/16 08:03 General appearance: Present: no acute distress, well-nourished, obese, other ( febrile) - EENT Eyes: Present: PERRL, EOM intact ENT: hearing intact, clear oral mucosa, dentition normal - Neck Neck: Present: supple, normal ROM - Respiratory Respiratory effort: normal Respiratory: bilateral: CTA - Cardiovascular Rhythm: regular Heart Sounds: Present: S1 & S2. Absent: gallop, rub - Extremities Extremities: no ischemia, No edema, Full ROM - Abdominal General gastrointestinal: soft, non-tender, non-distended, normal bowel sounds - Integumentary Integumentary: Present: clear, warm, dry - Neurologic Neurologic: CNII-XII intact, moves all extremities Results - Labs CBC & Chem 7: 09/06/16 05:34 09/06/16 05:34 Labs: Laboratory Last Values WBC 14.1 K/mm3 (4.5-11.0) H 09/06/16 05:34 RBC 5.24 M/mm3 (3.65-5.03) H 09/06/16 05:34 Hgb 14.0 gm/dl (11.8-15.2) 09/06/16 05:34 Hct 42.6 % (35.5-45.6) 09/06/16 05:34 MCV 81 fl (84-94) L 09/06/16 05:34 MCH 27 pg (28-32) L 09/06/16 05:34 MCHC 33 % (32-34) 09/06/16 05:34 RDW 13.4 % (13.2-15.2) 09/06/16 05:34 Plt Count 208 K/mm3 (140-440) 09/06/16 05:34 Lymph % (Auto) 16.4 % (13.4-35.0) 09/03/16 16:46 [place] % (Auto) Plane Tender 09/06/16 05:34 Eos % (Auto) 0.1 % (0.0-4.3) 09/03/16 16:46 Baso % (Auto) 0.6 % (0.0-1.8) 09/03/16 16:46 Lymph # 2.4 K/mm3 (1.2-5.4) 09/03/16 16:46 [place] # 2.2 K/mm3 (0.0-0.8) H 09/03/16 16:46 Eos # 0.0 K/mm3 (0.0-0.4) 09/03/16 16:46 Baso # 0.1 K/mm3 (0.0-0.1) 09/03/16 16:46 Add Manual Diff Complete 09/05/16 06:17 Total Counted 100 09/05/16 06:17 Seg Neutrophils % 68.2 % (40.0-70.0) 09/03/16 16:46 Seg Neuts % (Manual) 66.0 % (40.0-70.0) 09/05/16 06:17 Band Neutrophils % 1.0 % 09/05/16 06:17 Lymphocytes % (Manual) 20.0 % (13.4-35.0) 09/05/16 06:17 Reactive Lymphs % (Man) 0 % 09/05/16 06:17 Monocytes % (Manual) 13.0 % (0.0-7.3) H 09/05/16 06:17 Eosinophils % (Manual) 0 % (0.0-4.3) 09/05/16 06:17 Basophils % (Manual) 0 % (0.0-1.8) 09/05/16 06:17 Metamyelocytes % 0 % 09/05/16 06:17 Myelocytes % 0 % 09/05/16 06:17 Promyelocytes % 0 % 09/05/16 06:17 Blast Cells % 0 % 09/05/16 06:17 Nucleated RBC % Not Reportable 09/05/16 06:17 Seg Neutrophils # 10.1 K/mm3 (1.8-7.7) H 09/03/16 16:46 Seg Neutrophils # Man 7.9 K/mm3 (1.8-7.7) H 09/05/16 06:17 Band Neutrophils # 0.1 K/mm3 09/05/16 06:17 Lymphocytes # (Manual) 2.4 K/mm3 (1.2-5.4) 09/05/16 06:17 Abs React Lymphs (Man) 0.0 K/mm3 09/05/16 06:17 Monocytes # (Manual) 1.5 K/mm3 (0.0-0.8) H 09/05/16 06:17 Eosinophils # (Manual) 0.0 K/mm3 (0.0-0.4) 09/05/16 06:17 Basophils # (Manual) 0.0 K/mm3 (0.0-0.1) 09/05/16 06:17 Metamyelocytes # 0.0 K/mm3 09/05/16 06:17 Myelocytes # 0.0 K/mm3 09/05/16 06:17 Promyelocytes # 0.0 K/mm3 09/05/16 06:17 Blast Cells # 0.0 K/mm3 09/05/16 06:17 WBC Morphology Not Reportable 09/05/16 06:17 Hypersegmented Neuts Not Reportable 09/05/16 06:17 Hyposegmented Neuts Not Reportable 09/05/16 06:17 Hypogranular Neuts Not Reportable 09/05/16 06:17 Smudge Cells Not Reportable 04/01/17 06:17 Toxic Granulation Not Reportable 09/05/16 06:17 Toxic Vacuolation Not Reportable 09/05/16 06:17 Dohle Bodies Not Reportable 09/05/16 06:17 Pelger-Huet Anomaly Not Reportable 09/05/16 06:17 [place] Rods Not Reportable 09/05/16 06:17 Platelet Estimate Consistent w auto 09/05/16 06:17 Clumped Platelets Not Reportable 09/05/16 06:17 Plt Clumps, EDTA Not Reportable 09/05/16 06:17 Large Platelets Not Reportable 09/05/16 06:17 Giant Platelets Not Reportable 09/05/16 06:17 Platelet Satelliting Not Reportable 09/05/16 06:17 Plt Morphology Comment Not Reportable 09/05/16 06:17 RBC Morphology Not Reportable 09/05/16 06:17 Dimorphic RBCs Not Reportable 09/05/16 06:17 Polychromasia Not Reportable 09/05/16 06:17 Hypochromasia Not Reportable 09/05/16 06:17 Poikilocytosis Not Reportable 09/05/16 06:17 Anisocytosis 1+ 09/05/16 06:17 Microcytosis Not Reportable 09/05/16 06:17 Macrocytosis Not Reportable 09/05/16 06:17 Spherocytes Not Reportable 09/05/16 06:17 Pappenheimer Bodies Not Reportable 09/05/16 06:17 Sickle Cells Not Reportable 09/05/16 06:17 Target Cells Not Reportable 09/05/16 06:17 Tear Drop Cells Not Reportable 09/05/16 06:17 Ovalocytes Not Reportable 09/05/16 06:17 Helmet Cells Not Reportable 09/05/16 06:17 [place] Bodies Not Reportable 09/05/16 06:17 Wing Rings Not Reportable 09/05/16 06:17 Rita Cells Not Reportable 09/05/16 06:17 Bite Cells Not Reportable 09/05/16 06:17 Crenated Cell Not Reportable 09/05/16 06:17 Elliptocytes Not Reportable 09/05/16 06:17 Acanthocytes (Spur) Not Reportable 09/05/16 06:17 Rouleaux Not Reportable 09/05/16 06:17 Hemoglobin C Crystals Not Reportable 09/05/16 06:17 Schistocytes Not Reportable 09/05/16 06:17 Malaria parasites Not Reportable 09/05/16 06:17 ESR 28 mm/Hr (0-20) 09/04/16 21:51 [place] Bodies Not Reportable 09/05/16 06:17 Hem Pathologist Commnt No 09/05/16 06:17 PT 13.8 Sec. (12.2-14.9) 09/03/16 16:46 INR 1.07 (0.87-1.13) 09/03/16 16:46 VBG pH 7.375 (7.320-7.420) 09/03/16 16:46 Sodium 138 mmol/L (137-145) 09/06/16 05:34 Potassium 4.0 mmol/L (3.6-5.0) 09/06/16 05:34 Chloride 100.1 mmol/L (98-107) 09/06/16 05:34 Carbon Dioxide 22 mmol/L (22-30) 09/06/16 05:34 Anion Gap 20 mmol/L 09/06/16 05:34 BUN 5 mg/dL (9-20) L 09/06/16 05:34 Creatinine 0.9 mg/dL (0.8-1.5) 09/06/16 05:34 Estimated GFR > 60 ml/min 09/06/16 05:34 BUN/Creatinine Ratio 5.55 % 09/06/16 05:34 Glucose 91 mg/dL (75-100) 09/06/16 05:34 POC Glucose 109 (70-105) H 09/03/16 14:56 Lactic Acid 1.3 mmol/L (0.7-2.0) 09/03/16 16:46 Calcium 8.6 mg/dL (8.4-10.2) 09/06/16 05:34 Total Bilirubin 0.6 mg/dL (0.1-1.2) 09/03/16 16:46 AST 23 units/L (5-40) 09/03/16 16:46 ALT 26 units/L (7-56) 09/03/16 16:46 Alkaline Phosphatase 101 units/L (35-129) 09/03/16 16:46 Total Protein 8.1 g/dL (6.3-8.2) 09/03/16 16:46 Albumin 4.2 g/dL (3.9-5) 09/03/16 16:46 Albumin/Globulin Ratio 1.1 % 09/03/16 16:46 TSH 2.060 mlU/mL (0.270-4.200) 09/05/16 20:40 Free T4 1.29 ng/dL (0.76-1.46) 09/05/16 20:40 Urine Color [place] (Yellow) 09/03/16 15:46 Urine Turbidity Clear (Clear) 09/03/16 15:46 Urine pH 5.0 (5.0-7.0) 09/03/16 15:46 Ur Specific [place] 1.029 (1.003-1.030) 09/03/16 15:46 Urine Protein 30 mg/dl mg/dL (Negative) 09/03/16 15:46 Urine Glucose (UA) Neg mg/dL (Negative) 09/03/16 15:46 Urine Ketones 80 mg/dL (Negative) 09/03/16 15:46 Urine Blood Neg (Negative) 09/03/16 15:46 Urine Nitrite Neg (Negative) 09/03/16 15:46 Urine Bilirubin Neg (Negative) 09/03/16 15:46 Urine Urobilinogen 4.0 mg/dL (<2.0) 09/03/16 15:46 Ur Leukocyte Esterase Neg (Negative) 09/03/16 15:46 Urine WBC (Auto) 8.0 /HPF (0.0-6.0) H 09/03/16 15:46 Urine RBC (Auto) 3.0 /HPF (0.0-6.0) 09/03/16 15:46 Urine Mucus 3+ /HPF 09/03/16 15:46 HIV 1&2 Antibody Rapid Non react (Non React) 09/04/16 02:02 HIV P24 Antigen Non react (Non React) 09/04/16 02:02
[2016-09-06 09:21] LABS: Basophils % (Manual) 0 % (0.0-1.8); Blastocytes % (Manual) 0 %; Eosinophils % (Manual) 0 % (0.0-4.3)
[2016-09-06 09:26] LABS: Diff Status Complete; RBC Morphology Normal
[2016-09-06] MEDS: LOVENOX SUB-Q SCH (09:54)
[2016-09-06] MEDS: TYLENOL PO PRN (09:54)
[2016-09-06] MEDS: LEVAQUIN PO SCH (09:54)
[2016-09-06] MEDS: BACTRIM DS PO SCH (09:54)
[2016-09-06] MEDS: DIFLUCAN/NS 100 MG/50 ML 100 MG/50 ML BAG IV SCH (10:24)
--- NOTE | 2016-09-06 16:02 | Progress Note ---
Subjective Date of service: 09/06/16 Principal diagnosis: fever, oral thrush Interval history: Complained of nausea. Continues to have fever and tachycardia. VS - tmax 103.2. Tachycardia with pulse rate of 127. chest good air . abd - full. No tenderness. bs+. no axillary or inguinal lymph nodes palpated. LABS HIV - neg. ct chest and abdomen - unremarkable. ASSESSMENT 1. Fever ? etiology. 2. Oroesophageal candidiasis RECOMMENDATION 1. d/c bactrim. 2. TSH, t4 3. Echocardiogram. Objective - Constitutional Vitals: Vital Signs Temp Pulse Resp BP Pulse Ox 99.8 F H 108 H 18 125/76 98 09/06/16 08:03 09/06/16 08:03 09/06/16 08:03 09/06/16 08:03 09/06/16 08:03 Temperature -Last 24 Hours Temperature 99.8 F Temperature 98.6 F Temperature 102.5 F Temperature 102.9 F Temperature 101.5 F - Labs CBC & Chem 7: 09/06/16 05:34 09/06/16 05:34 Labs: Abnormal lab results 09/06/16 09/06/16 Range/Units 05:34 05:34 WBC 14.1 H (4.5-11.0) K/mm3 RBC 5.24 H (3.65-5.03) M/mm3 MCV 81 L (84-94) fl MCH 27 L (28-32) pg Monocytes % (Manual) 19.0 H (0.0-7.3) % Monocytes # (Manual) 2.7 H (0.0-0.8) K/mm3 BUN 5 L (9-20) mg/dL
[2016-09-07 08:12] LABS: Basophils % (Auto) 0.3 % (0.0-1.8); Eosinophils % (Auto) 1.3 % (0.0-4.3); Hematocrit 41.4 % (35.5-45.6); Hemoglobin 13.7 gm/dl (11.8-15.2); Mean Corpuscular HGB Conc 33 % (32-34); Mean Corpuscular Hemoglobin 27 pg (28-32); Mean Corpuscular Volume 81 fl (84-94); Platelet Count 243 K/mm3 (140-440); Red Blood Count 5.08 M/mm3 (3.65-5.03); Red Cell Distribution Width 13.3 % (13.2-15.2); White Blood Count 11.8 K/mm3 (4.5-11.0)
[2016-09-07 08:43] LABS: Anion Gap 18 mmol/L; Blood Urea Nitrogen 8 mg/dL (9-20); Calcium 8.9 mg/dL (8.4-10.2); Carbon Dioxide 24 mmol/L (22-30); Chloride 100.5 mmol/L (98-107); Glucose 89 mg/dL (75-100); Potassium 4.5 mmol/L (3.6-5.0); Sodium 138 mmol/L (137-145)
--- NOTE | 2016-09-07 09:47 | Progress Note ---
Assessment and Plan Assessment and plan: 1. Sepsis. Present on admission. No obvious source of infection other than candidiasis. Patient only with slightly elevated sedimentation rate at 28. Lactic acid levels are normal. Blood cultures are negative. However, patient with persistent fevers. Check echocardiogram and lower extremity Dopplers. ID following. Follow-up Blood and urine cultures. Continue empiric IV antibiotics , IV fluids and supportive care 2. oral candidiasis HIV test negative, Diflucan, and Nystatin swish and swallow Supportive care. GI evaluation if needed for possible endoscopy and to rule out Cindy esophagitis 3. Leukocytosis, secondary to sepsis. CT of the chest, abdomen and pelvis essentially negative except for small right pleural effusion. ID following 4. Mild hyponatremia, replacement therapy with normal saline Closely monitor electrolytes 5. DVT prophylaxis with Lovenox History Interval history: 10-year-old man with no medical problems comes emergency room with complaints of difficulty swallowing, sore throat started this week. Also complaining of fever , headache, difficulty swallowing. He stated he feels like when he had strep throat here denies weight loss, sexually active with one partner, he stated he was tested for HIV a year ago which was negative Hospitalist Physical - Constitutional Vitals: Temp Pulse Resp BP Pulse Ox 100.2 F H 100 H 20 129/81 96 09/07/16 00:00 09/07/16 00:00 09/07/16 00:00 09/07/16 00:00 09/07/16 00:00 General appearance: Present: no acute distress, well-nourished, obese, other ( febrile) - EENT Eyes: Present: PERRL, EOM intact ENT: hearing intact, clear oral mucosa, dentition normal - Neck Neck: Present: supple, normal ROM - Respiratory Respiratory effort: normal Respiratory: bilateral: CTA - Cardiovascular Rhythm: regular Heart Sounds: Present: S1 & S2. Absent: gallop, rub - Extremities Extremities: no ischemia, No edema, Full ROM - Abdominal General gastrointestinal: soft, non-tender, non-distended, normal bowel sounds - Integumentary Integumentary: Present: clear, warm, dry - Neurologic Neurologic: CNII-XII intact, moves all extremities Results - Labs CBC & Chem 7: 09/07/16 07:39 09/07/16 07:39 Labs: Laboratory Last Values WBC 11.8 K/mm3 (4.5-11.0) H 09/07/16 07:39 RBC 5.08 M/mm3 (3.65-5.03) H 09/07/16 07:39 Hgb 13.7 gm/dl (11.8-15.2) 09/07/16 07:39 Hct 41.4 % (35.5-45.6) 09/07/16 07:39 MCV 81 fl (84-94) L 09/07/16 07:39 MCH 27 pg (28-32) L 09/07/16 07:39 MCHC 33 % (32-34) 09/07/16 07:39 RDW 13.3 % (13.2-15.2) 09/07/16 07:39 Plt Count 243 K/mm3 (140-440) 09/07/16 07:39 Lymph % (Auto) 23.6 % (13.4-35.0) 09/07/16 07:39 [place] % (Auto) 11.7 % (0.0-7.3) H 09/07/16 07:39 Eos % (Auto) 1.3 % (0.0-4.3) 09/07/16 07:39 Baso % (Auto) 0.3 % (0.0-1.8) 09/07/16 07:39 Lymph # 2.8 K/mm3 (1.2-5.4) 09/07/16 07:39 [place] # 1.4 K/mm3 (0.0-0.8) H 09/07/16 07:39 Eos # 0.2 K/mm3 (0.0-0.4) 09/07/16 07:39 Baso # 0.0 K/mm3 (0.0-0.1) 09/07/16 07:39 Add Manual Diff Complete 09/06/16 05:34 Total Counted 100 09/06/16 05:34 Seg Neutrophils % 63.1 % (40.0-70.0) 09/07/16 07:39 Seg Neuts % (Manual) 52.0 % (40.0-70.0) 09/06/16 05:34 Band Neutrophils % 9.0 % 09/06/16 05:34 Lymphocytes % (Manual) 20.0 % (13.4-35.0) 09/06/16 05:34 Reactive Lymphs % (Man) 0 % 09/06/16 05:34 Monocytes % (Manual) 19.0 % (0.0-7.3) H 09/06/16 05:34 Eosinophils % (Manual) 0 % (0.0-4.3) 09/06/16 05:34 Basophils % (Manual) 0 % (0.0-1.8) 09/06/16 05:34 Metamyelocytes % 0 % 09/06/16 05:34 Myelocytes % 0 % 09/06/16 05:34 Promyelocytes % 0 % 09/06/16 05:34 Blast Cells % 0 % 09/06/16 05:34 Nucleated RBC % Not Reportable 09/06/16 05:34 Seg Neutrophils # 7.4 K/mm3 (1.8-7.7) 09/07/16 07:39 Seg Neutrophils # Man 7.3 K/mm3 (1.8-7.7) 09/06/16 05:34 Band Neutrophils # 1.3 K/mm3 09/06/16 05:34 Lymphocytes # (Manual) 2.8 K/mm3 (1.2-5.4) 09/06/16 05:34 Abs React Lymphs (Man) 0.0 K/mm3 09/06/16 05:34 Monocytes # (Manual) 2.7 K/mm3 (0.0-0.8) H 09/06/16 05:34 Eosinophils # (Manual) 0.0 K/mm3 (0.0-0.4) 09/06/16 05:34 Basophils # (Manual) 0.0 K/mm3 (0.0-0.1) 09/06/16 05:34 Metamyelocytes # 0.0 K/mm3 09/06/16 05:34 Myelocytes # 0.0 K/mm3 09/06/16 05:34 Promyelocytes # 0.0 K/mm3 09/06/16 05:34 Blast Cells # 0.0 K/mm3 09/06/16 05:34 WBC Morphology Not Reportable 09/06/16 05:34 Hypersegmented Neuts Not Reportable 09/06/16 05:34 Hyposegmented Neuts Not Reportable 09/06/16 05:34 Hypogranular Neuts Not Reportable 09/06/16 05:34 Smudge Cells Not Reportable 09/06/16 05:34 Toxic Granulation Not Reportable 09/06/16 05:34 Toxic Vacuolation Not Reportable 09/06/16 05:34 Dohle Bodies Not Reportable 09/06/16 05:34 Pelger-Huet Anomaly Not Reportable 09/06/16 05:34 [place] Rods Not Reportable 09/06/16 05:34 Platelet Estimate Appears normal 09/06/16 05:34 Clumped Platelets Not Reportable 09/06/16 05:34 Plt Clumps, EDTA Not Reportable 09/06/16 05:34 Large Platelets Not Reportable 09/06/16 05:34 Giant Platelets Not Reportable 09/06/16 05:34 Platelet Satelliting Not Reportable 09/06/16 05:34 Plt Morphology Comment Not Reportable 09/06/16 05:34 RBC Morphology Normal 09/06/16 05:34 Dimorphic RBCs Not Reportable 09/06/16 05:34 Polychromasia Not Reportable 09/06/16 05:34 Hypochromasia Not Reportable 09/06/16 05:34 Poikilocytosis Not Reportable 09/06/16 05:34 Anisocytosis Not Reportable 09/06/16 05:34 Microcytosis Not Reportable 09/06/16 05:34 Macrocytosis Not Reportable 09/06/16 05:34 Spherocytes Not Reportable 09/06/16 05:34 Pappenheimer Bodies Not Reportable 09/06/16 05:34 Sickle Cells Not Reportable 09/06/16 05:34 Target Cells Not Reportable 09/06/16 05:34 Tear Drop Cells Not Reportable 09/06/16 05:34 Ovalocytes Not Reportable 09/06/16 05:34 Helmet Cells Not Reportable 09/06/16 05:34 Méndez-[place] Bodies Not Reportable 09/06/16 05:34 [place] Rings Not Reportable 09/06/16 05:34 [place] Cells Not Reportable 09/06/16 05:34 Bite Cells Not Reportable 09/06/16 05:34 Crenated Cell Not Reportable 09/06/16 05:34 Elliptocytes Not Reportable 09/06/16 05:34 Acanthocytes (Spur) Not Reportable 09/06/16 05:34 Rouleaux Not Reportable 09/06/16 05:34 Hemoglobin C Crystals Not Reportable 09/06/16 05:34 Schistocytes Not Reportable 09/06/16 05:34 Malaria parasites Not Reportable 09/06/16 05:34 ESR 28 mm/Hr (0-20) 09/04/16 21:51 [place] Bodies Not Reportable 09/06/16 05:34 Hem Pathologist Commnt No 09/06/16 05:34 PT 13.8 Sec. (12.2-14.9) 09/03/16 16:46 INR 1.07 (0.87-1.13) 09/03/16 16:46 VBG pH 7.375 (7.320-7.420) 09/03/16 16:46 Sodium 138 mmol/L (137-145) 09/07/16 07:39 Potassium 4.5 mmol/L (3.6-5.0) 09/07/16 07:39 Chloride 100.5 mmol/L (98-107) 09/07/16 07:39 Carbon Dioxide 24 mmol/L (22-30) 09/07/16 07:39 Anion Gap 18 mmol/L 09/07/16 07:39 BUN 8 mg/dL (9-20) L 09/07/16 07:39 Creatinine 0.8 mg/dL (0.8-1.5) 09/07/16 07:39 Estimated GFR > 60 ml/min 09/07/16 07:39 BUN/Creatinine Ratio 10.00 % 09/07/16 07:39 Glucose 89 mg/dL (75-100) 09/07/16 07:39 POC Glucose 109 (70-105) H 09/03/16 14:56 Lactic Acid 1.3 mmol/L (0.7-2.0) 09/03/16 16:46 Calcium 8.9 mg/dL (8.4-10.2) 09/07/16 07:39 Total Bilirubin 0.6 mg/dL (0.1-1.2) 09/03/16 16:46 AST 23 units/L (5-40) 09/03/16 16:46 ALT 26 units/L (7-56) 09/03/16 16:46 Alkaline Phosphatase 101 units/L (35-129) 09/03/16 16:46 Total Protein 8.1 g/dL (6.3-8.2) 09/03/16 16:46 Albumin 4.2 g/dL (3.9-5) 09/03/16 16:46 Albumin/Globulin Ratio 1.1 % 09/03/16 16:46 TSH 2.060 mlU/mL (0.270-4.200) 09/05/16 20:40 Free T4 1.29 ng/dL (0.76-1.46) 09/05/16 20:40 Urine Color [place] (Yellow) 09/03/16 15:46 Urine Turbidity Clear (Clear) 09/03/16 15:46 Urine pH 5.0 (5.0-7.0) 09/03/16 15:46 Ur Specific [place] 1.029 (1.003-1.030) 09/03/16 15:46 Urine Protein 30 mg/dl mg/dL (Negative) 09/03/16 15:46 Urine Glucose (UA) Neg mg/dL (Negative) 09/03/16 15:46 Urine Ketones 80 mg/dL (Negative) 09/03/16 15:46 Urine Blood Neg (Negative) 09/03/16 15:46 Urine Nitrite Neg (Negative) 09/03/16 15:46 Urine Bilirubin Neg (Negative) 09/03/16 15:46 Urine Urobilinogen 4.0 mg/dL (<2.0) 09/03/16 15:46 Ur Leukocyte Esterase Neg (Negative) 09/03/16 15:46 Urine WBC (Auto) 8.0 /HPF (0.0-6.0) H 09/03/16 15:46 Urine RBC (Auto) 3.0 /HPF (0.0-6.0) 09/03/16 15:46 Urine Mucus 3+ /HPF 09/03/16 15:46 HIV 1&2 Antibody Rapid Non react (Non React) 09/04/16 02:02 HIV P24 Antigen Non react (Non React) 09/04/16 02:02
[2016-09-07] MEDS: LEVAQUIN PO SCH (10:10)
[2016-09-07] MEDS: NACL 0.9% 1000 ML 1,000 ML IV SCH (10:10)
[2016-09-07] MEDS: LOVENOX SUB-Q SCH (10:10)
[2016-09-07] MEDS: DIFLUCAN/NS 100 MG/50 ML 100 MG/50 ML BAG IV SCH (13:51)
[2016-09-08 05:35] LABS: Basophils % (Auto) 0.9 % (0.0-1.8); Eosinophils % (Auto) 2.7 % (0.0-4.3); Hematocrit 41.4 % (35.5-45.6); Hemoglobin 13.7 gm/dl (11.8-15.2); Mean Corpuscular HGB Conc 33 % (32-34); Mean Corpuscular Hemoglobin 27 pg (28-32); Mean Corpuscular Volume 81 fl (84-94); Platelet Count 266 K/mm3 (140-440); Red Cell Distribution Width 13.4 % (13.2-15.2); White Blood Count 7.7 K/mm3 (4.5-11.0)
[2016-09-08 05:46] LABS: Anion Gap 17 mmol/L; BUN/Creatinine Ratio 8.88; Blood Urea Nitrogen 8 mg/dL (9-20); Calcium 8.7 mg/dL (8.4-10.2); Carbon Dioxide 26 mmol/L (22-30); Chloride 101.5 mmol/L (98-107); Glucose 94 mg/dL (75-100); Potassium 4.4 mmol/L (3.6-5.0); Sodium 140 mmol/L (137-145)
--- NOTE | 2016-09-08 08:30 | Vascular Lab Report ---
LOWER EXTREMITY VENOUS DUPLEX: REASON FOR EXAM: Fevers. COMMENTS ON THE RIGHT: All veins visualized are freely compressible without evidence of internal echogenicity. Flow is spontaneous and phasic throughout. COMMENTS ON THE LEFT: All veins visualized are freely compressible without evidence of internal echogenicity. Flow is spontaneous and phasic throughout. IMPRESSION: No evidence of acute or chronic deep venous thrombosis in either lower extremity.
--- NOTE | 2016-09-08 09:43 | Progress Note ---
Assessment and Plan Assessment and plan: 1. Sepsis. Present on admission. No obvious source of infection other than candidiasis. Patient only with slightly elevated sedimentation rate at 28. Lactic acid levels are normal. Blood cultures are negative. However, patient with persistent fevers. Lower extremity Dopplers are negative for DVT. Echocardiogram reveals left ventricular systolic function that is normal with EF of 55% and mild concentric left ventricular hypertrophy. The leaflets appear myxomatous but no report of vegetations. ID following. Follow-up Blood and urine cultures. Continue empiric IV antibiotics, IV fluids and supportive care 2. oral candidiasis HIV test negative, Diflucan, and Nystatin swish and swallow Supportive care. GI evaluation if needed for possible endoscopy and to rule out Cindy esophagitis 3. Leukocytosis, secondary to sepsis. CT of the chest, abdomen and pelvis essentially negative except for small right pleural effusion. ID following 4. Mild hyponatremia, replacement therapy with normal saline Closely monitor electrolytes 5. DVT prophylaxis with Lovenox History Interval history: 10-year-old man with no medical problems comes emergency room with complaints of difficulty swallowing, sore throat started this week. Also complaining of fever , headache, difficulty swallowing. Patient diagnosed with oral/esophageal candidiasis. Patient with persistent fevers which have improved in the past 24 hours. No new issues overnight Hospitalist Physical - Constitutional Vitals: Temp Pulse Resp BP Pulse Ox 97.9 F 998 H 22 122/73 99 09/08/16 08:10 09/08/16 08:10 09/08/16 08:10 09/08/16 08:10 09/08/16 08:10 General appearance: Present: no acute distress, well-nourished, obese, other ( febrile) - EENT Eyes: Present: PERRL, EOM intact ENT: hearing intact, clear oral mucosa, dentition normal - Neck Neck: Present: supple, normal ROM - Respiratory Respiratory effort: normal Respiratory: bilateral: CTA - Cardiovascular Rhythm: regular Heart Sounds: Present: S1 & S2. Absent: gallop, rub - Extremities Extremities: no ischemia, No edema, Full ROM - Abdominal General gastrointestinal: soft, non-tender, non-distended, normal bowel sounds - Integumentary Integumentary: Present: clear, warm, dry - Neurologic Neurologic: CNII-XII intact, moves all extremities Results - Labs CBC & Chem 7: 09/08/16 05:10 09/08/16 05:10 Labs: Laboratory Last Values WBC 7.7 K/mm3 (4.5-11.0) 09/08/16 05:10 RBC 5.10 M/mm3 (3.65-5.03) H 09/08/16 05:10 Hgb 13.7 gm/dl (11.8-15.2) 09/08/16 05:10 Hct 41.4 % (35.5-45.6) 09/08/16 05:10 MCV 81 fl (84-94) L 09/08/16 05:10 MCH 27 pg (28-32) L 09/08/16 05:10 MCHC 33 % (32-34) 09/08/16 05:10 RDW 13.4 % (13.2-15.2) 09/08/16 05:10 Plt Count 266 K/mm3 (140-440) 09/08/16 05:10 Lymph % (Auto) 39.8 % (13.4-35.0) H 09/08/16 05:10 [place] % (Auto) 10.7 % (0.0-7.3) H 09/08/16 05:10 Eos % (Auto) 2.7 % (0.0-4.3) 09/08/16 05:10 Baso % (Auto) 0.9 % (0.0-1.8) 09/08/16 05:10 Lymph # 3.1 K/mm3 (1.2-5.4) 09/08/16 05:10 [place] # 0.8 K/mm3 (0.0-0.8) 09/08/16 05:10 Eos # 0.2 K/mm3 (0.0-0.4) 09/08/16 05:10 Baso # 0.1 K/mm3 (0.0-0.1) 09/08/16 05:10 Add Manual Diff Complete 09/06/16 05:34 Total Counted 100 09/06/16 05:34 Seg Neutrophils % 45.9 % (40.0-70.0) 09/08/16 05:10 Seg Neuts % (Manual) 52.0 % (40.0-70.0) 09/06/16 05:34 Band Neutrophils % 9.0 % 09/06/16 05:34 Lymphocytes % (Manual) 20.0 % (13.4-35.0) 09/06/16 05:34 Reactive Lymphs % (Man) 0 % 09/06/16 05:34 Monocytes % (Manual) 19.0 % (0.0-7.3) H 09/06/16 05:34 Eosinophils % (Manual) 0 % (0.0-4.3) 09/06/16 05:34 Basophils % (Manual) 0 % (0.0-1.8) 09/06/16 05:34 Metamyelocytes % 0 % 09/06/16 05:34 Myelocytes % 0 % 09/06/16 05:34 Promyelocytes % 0 % 09/06/16 05:34 Blast Cells % 0 % 09/06/16 05:34 Nucleated RBC % Not Reportable 09/06/16 05:34 Seg Neutrophils # 3.5 K/mm3 (1.8-7.7) 09/08/16 05:10 Seg Neutrophils # Man 7.3 K/mm3 (1.8-7.7) 09/06/16 05:34 Band Neutrophils # 1.3 K/mm3 09/06/16 05:34 Lymphocytes # (Manual) 2.8 K/mm3 (1.2-5.4) 09/06/16 05:34 Abs React Lymphs (Man) 0.0 K/mm3 09/06/16 05:34 Monocytes # (Manual) 2.7 K/mm3 (0.0-0.8) H 09/06/16 05:34 Eosinophils # (Manual) 0.0 K/mm3 (0.0-0.4) 09/06/16 05:34 Basophils # (Manual) 0.0 K/mm3 (0.0-0.1) 09/06/16 05:34 Metamyelocytes # 0.0 K/mm3 09/06/16 05:34 Myelocytes # 0.0 K/mm3 09/06/16 05:34 Promyelocytes # 0.0 K/mm3 09/06/16 05:34 Blast Cells # 0.0 K/mm3 09/06/16 05:34 WBC Morphology Not Reportable 09/06/16 05:34 Hypersegmented Neuts Not Reportable 09/06/16 05:34 Hyposegmented Neuts Not Reportable 09/06/16 05:34 Hypogranular Neuts Not Reportable 09/06/16 05:34 Smudge Cells Not Reportable 09/06/16 05:34 Toxic Granulation Not Reportable 09/06/16 05:34 Toxic Vacuolation Not Reportable 09/06/16 05:34 Dohle Bodies Not Reportable 09/06/16 05:34 Pelger-Huet Anomaly Not Reportable 09/06/16 05:34 [place] Rods Not Reportable 09/06/16 05:34 Platelet Estimate Appears normal 09/06/16 05:34 Clumped Platelets Not Reportable 09/06/16 05:34 Plt Clumps, EDTA Not Reportable 09/06/16 05:34 Large Platelets Not Reportable 09/06/16 05:34 Giant Platelets Not Reportable 09/06/16 05:34 Platelet Satelliting Not Reportable 09/06/16 05:34 Plt Morphology Comment Not Reportable 09/06/16 05:34 RBC Morphology Normal 09/06/16 05:34 Dimorphic RBCs Not Reportable 09/06/16 05:34 Polychromasia Not Reportable 09/06/16 05:34 Hypochromasia Not Reportable 09/06/16 05:34 Poikilocytosis Not Reportable 09/06/16 05:34 Anisocytosis Not Reportable 09/06/16 05:34 Microcytosis Not Reportable 09/06/16 05:34 Macrocytosis Not Reportable 09/06/16 05:34 Spherocytes Not Reportable 09/06/16 05:34 Pappenheimer Bodies Not Reportable 09/06/16 05:34 Sickle Cells Not Reportable 09/06/16 05:34 Target Cells Not Reportable 09/06/16 05:34 Tear Drop Cells Not Reportable 09/06/16 05:34 Ovalocytes Not Reportable 09/06/16 05:34 Helmet Cells Not Reportable 09/06/16 05:34 Méndez-[place] Bodies Not Reportable 09/06/16 05:34 [place] Rings Not Reportable 09/06/16 05:34 [place] Cells Not Reportable 09/06/16 05:34 Bite Cells Not Reportable 09/06/16 05:34 Crenated Cell Not Reportable 09/06/16 05:34 Elliptocytes Not Reportable 09/06/16 05:34 Acanthocytes (Spur) Not Reportable 09/06/16 05:34 Rouleaux Not Reportable 09/06/16 05:34 Hemoglobin C Crystals Not Reportable 09/06/16 05:34 Schistocytes Not Reportable 09/06/16 05:34 Malaria parasites Not Reportable 09/06/16 05:34 ESR 28 mm/Hr (0-20) 09/04/16 21:51 [place] Bodies Not Reportable 09/06/16 05:34 Hem Pathologist Commnt No 09/06/16 05:34 PT 13.8 Sec. (12.2-14.9) 09/03/16 16:46 INR 1.07 (0.87-1.13) 09/03/16 16:46 VBG pH 7.375 (7.320-7.420) 09/03/16 16:46 Sodium 140 mmol/L (137-145) 09/08/16 05:10 Potassium 4.4 mmol/L (3.6-5.0) 09/08/16 05:10 Chloride 101.5 mmol/L (98-107) 09/08/16 05:10 Carbon Dioxide 26 mmol/L (22-30) 09/08/16 05:10 Anion Gap 17 mmol/L 09/08/16 05:10 BUN 8 mg/dL (9-20) L 09/08/16 05:10 Creatinine 0.9 mg/dL (0.8-1.5) 09/08/16 05:10 Estimated GFR > 60 ml/min 09/08/16 05:10 BUN/Creatinine Ratio 8.88 % 09/08/16 05:10 Glucose 94 mg/dL (75-100) 09/08/16 05:10 POC Glucose 109 (70-105) H 09/03/16 14:56 Lactic Acid 1.3 mmol/L (0.7-2.0) 09/03/16 16:46 Calcium 8.7 mg/dL (8.4-10.2) 09/08/16 05:10 Total Bilirubin 0.6 mg/dL (0.1-1.2) 09/03/16 16:46 AST 23 units/L (5-40) 09/03/16 16:46 ALT 26 units/L (7-56) 09/03/16 16:46 Alkaline Phosphatase 101 units/L (35-129) 09/03/16 16:46 Total Protein 8.1 g/dL (6.3-8.2) 09/03/16 16:46 Albumin 4.2 g/dL (3.9-5) 09/03/16 16:46 Albumin/Globulin Ratio 1.1 % 09/03/16 16:46 TSH 2.060 mlU/mL (0.270-4.200) 09/05/16 20:40 Free T4 1.29 ng/dL (0.76-1.46) 09/05/16 20:40 Urine Color [place] (Yellow) 09/03/16 15:46 Urine Turbidity Clear (Clear) 09/03/16 15:46 Urine pH 5.0 (5.0-7.0) 09/03/16 15:46 Ur Specific [place] 1.029 (1.003-1.030) 09/03/16 15:46 Urine Protein 30 mg/dl mg/dL (Negative) 09/03/16 15:46 Urine Glucose (UA) Neg mg/dL (Negative) 09/03/16 15:46 Urine Ketones 80 mg/dL (Negative) 09/03/16 15:46 Urine Blood Neg (Negative) 09/03/16 15:46 Urine Nitrite Neg (Negative) 09/03/16 15:46 Urine Bilirubin Neg (Negative) 09/03/16 15:46 Urine Urobilinogen 4.0 mg/dL (<2.0) 09/03/16 15:46 Ur Leukocyte Esterase Neg (Negative) 09/03/16 15:46 Urine WBC (Auto) 8.0 /HPF (0.0-6.0) H 09/03/16 15:46 Urine RBC (Auto) 3.0 /HPF (0.0-6.0) 09/03/16 15:46 Urine Mucus 3+ /HPF 09/03/16 15:46 HIV 1&2 Antibody Rapid Non react (Non React) 09/04/16 02:02 HIV P24 Antigen Non react (Non React) 09/04/16 02:02
[2016-09-08] MEDS: LOVENOX SUB-Q SCH (09:56)
[2016-09-08] MEDS: DIFLUCAN/NS 100 MG/50 ML 100 MG/50 ML BAG IV SCH (09:57)
[2016-09-08] MEDS: NACL 0.9% 1000 ML 1,000 ML IV SCH ×2 (09:57→19:32)
[2016-09-08] MEDS: LEVAQUIN PO SCH (09:58)
--- NOTE | 2016-09-08 12:53 | Event Note ---
Date: 09/08/16 Consult noted. After speaking to the patient he is currently eating a regular/ soft diet with no difficulty. He states he is markedly improved with no pain now. No high fever x 48 hours. WBC improved. In this case, the patient is having resolved symptoms. ID following, HIV negative. I have provided office information to the patient and he can follow up as an outpatient if symptoms persist. I recommend he follow up ID/ PCP as well, for continued evaluation. NO endoscopy indicated at this time with resolving symptoms. GI will sign off.
[2016-09-09] MEDS: NACL 0.9% 1000 ML 1,000 ML IV SCH (04:59)
[2016-09-09 06:48] LABS: Mean Corpuscular HGB Conc 33 % (32-34); Mean Corpuscular Hemoglobin 27 pg (28-32); Mean Corpuscular Volume 81 fl (84-94); Platelet Count 293 K/mm3 (140-440); Red Blood Count 5.18 M/mm3 (3.65-5.03); Red Cell Distribution Width 13.3 % (13.2-15.2); White Blood Count 6.7 K/mm3 (4.5-11.0)
[2016-09-09 07:04] LABS: Anion Gap 17 mmol/L; BUN/Creatinine Ratio 8.75; Blood Urea Nitrogen 7 mg/dL (9-20); Calcium 8.7 mg/dL (8.4-10.2); Carbon Dioxide 25 mmol/L (22-30); Chloride 104.5 mmol/L (98-107); Glucose 92 mg/dL (75-100); Potassium 4.2 mmol/L (3.6-5.0); Sodium 142 mmol/L (137-145)
[2016-09-09 08:33] LABS: Basophils % (Manual) 0 % (0.0-1.8); Blastocytes % (Manual) 0 %
[2016-09-09 08:34] LABS: Anisocytosis Few; Diff Status Complete
--- NOTE | 2016-09-09 09:58 | Discharge Summary ---
Providers - Providers Date of Admission: 09/03/16 23:31 Date of discharge: 09/09/16 Attending physician: DEACON HOWELL 09/04/16 08:13 Consult to Physician [CONS] Routine Consulting Provider: NARENDRA TRUONG Reason For Exam: febrile illness/oral candidiasis Place consult to:: dr. truong Notified:: answering service Phone number called:: Was contact made?: Yes If yes, spoke with:: jayme Time called:: 08:58 09/08/16 09:41 Consult to Physician [CONS] Routine Consulting Provider: HOME MADDEN Reason For Exam: candidiasis r/o esophageal involvement Place consult to:: DR. MADDEN Notified:: OFFICE Phone number called:: [phone] Was contact made?: Yes If yes, spoke with:: JOSE LUIS Time called:: 10:55 Comment:: TODD NOTIFIED Primary care physician: [employer] Hospitalization Reason for admission: oral candidiasis Condition: Stable Hospital course: 20-year-old man with no medical problems comes emergency room with complaints of difficulty swallowing, sore throat started the week prior to admission. Patient also complained of fever, headache and difficulty swallowing. He was tested for HIV a year ago which was negative. Patient was admitted with diagnosis of oral candidiasis. Patient was treated with IV Diflucan. Patient was seen by GI and ID in consultation. Patient had persistent fevers the first few days of hospitalization. Etiology was unknown. Echocardiogram revealed no evidence of infective endocarditis or vegetations. Doppler ultrasound of the lower extremities was negative. Patient's fever defervesced and he remained afebrile greater than 48 hours. Blood cultures found to be negative. Patient' s diet progress to regular diet without difficulty. GI felt that the patient had clinically improved and could be followed up as an outpatient. No plans for endoscopy at this time. The patient is felt to have received maximal hospital benefit. Dedicated discharge time 32 minutes. Disposition: DISCHARGED TO HOME OR SELFCARE Time spent for discharge: 32 - Discharge Diagnoses (1) Sepsis Status: Acute Qualifiers: Sepsis type: S (2) Fever Status: Acute Qualifiers: Fever type: F Encounter type: E (3) Oral pharyngeal candidiasis Status: Acute Core Measure Documentation - Palliative Care Palliative Care/ Comfort Measures: Not Applicable - Core Measures Any of the following diagnoses?: none Exam - Constitutional Vitals: Temp Pulse Resp BP Pulse Ox 98.2 F 60 18 118/68 99 09/09/16 08:33 09/09/16 08:33 09/09/16 08:33 09/09/16 08:33 09/09/16 08:33 General appearance: Present: no acute distress, well-nourished - EENT Eyes: Present: PERRL ENT: hearing intact, clear oral mucosa - Neck Neck: Present: supple, normal ROM - Respiratory Respiratory effort: normal Respiratory: bilateral: CTA - Cardiovascular Heart Sounds: Present: S1 & S2. Absent: rub, click - Extremities Extremities: pulses symmetrical, No edema Peripheral Pulses: within normal limits - Abdominal General gastrointestinal: Present: soft, non-tender, non-distended, normal bowel sounds Male genitourinary: Present: normal - Integumentary Integumentary: Present: clear, warm, dry - Musculoskeletal Musculoskeletal: gait normal, strength equal bilaterally - Psychiatric Psychiatric: appropriate mood/affect, intact judgment & insight - Neurologic Neurologic: CNII-XII intact, moves all extremities Plan Activity: no restrictions Weight Bearing Status: Full Weight Bearing Diet: regular Follow up with: PRIMARY CARE, [Primary Care Provider] - 7 Days Prescriptions: Fluconazole [Diflucan TAB] 100 mg PO QDAY #7 tablet Levofloxacin [Levaquin TAB] 750 mg PO Q24HR #7 tablet
[2016-09-09] MEDS ORDERED: DIFLUCAN PO SCH (10:00)
[2016-09-09] MEDS: LEVAQUIN PO SCH (10:02)
[2016-09-09] MEDS: LOVENOX SUB-Q SCH (10:03)
[2016-09-09 15:55] VITALS: BP 124/66
== END 2016-09-09 15:20 | disposition home or self-care (01) | DRG 872 ==
LOC: ED 13:49 → 3A 23:31
PROVIDERS: ADMIT Internal Medicine; ATTEND Hospitalist
DX: A41.9 Sepsis, unspecified organism (principal); B37.0 Candidal stomatitis; E87.1 Hypo-osmolality and hyponatremia; B37.81 Candidal esophagitis; E86.0 Dehydration; R13.10 Dysphagia, unspecified; J02.0 Streptococcal pharyngitis; Z82.49 Family history of ischemic heart disease and other diseases of the circulatory system
CPT/HCPCS: 36415; 71010; 71250; 74176; 80048; 80053; 81001; 82140; 82805; 82962; 84439; 84443; 85007; 85025; 85610; 85652; 87040; 87086; 87116; 87430; 87806; 93005; 93010; 93306; 93970; 96361; 96374; J1450; J1650; J1885; J2405; J2543; J7030